=== PATIENT | female | born 1955 | race Caucasian/White ===

== ENCOUNTER 2017-10-20 00:25 | Emergency (ER) | payer OTHER ==
[2017-10-20] MEDS ORDERED: ASPIRIN 81 MG TABLET, CHEWABLE PO ONE (02:09)
[2017-10-20 02:33] LABS: ABSOLUTE BASOPHILS # (AUTO) 0.1 10^3/uL (0.0-0.2); ABSOLUTE EOSINOPHILS # (AUTO) 0.1 10^3/uL (0.0-0.6); ABSOLUTE LYMPHOCYTES (AUTO) 2.8 10^3/uL (0.5-4.7); ABSOLUTE MONOCYTES (AUTO) 0.8 10^3/uL (0.1-1.4); ABSOLUTE NEUT (AUTO) 5.4 10^3/uL (1.7-8.2); BASOPHILS % (AUTO) 0.6 % (0-2); EOSINOPHILS % (AUTO) 1.2 % (0-6); HEMATOCRIT 40.5 % (36.0-47.0); HEMOGLOBIN 13.9 g/dL (12.0-15.5); LYMPHOCYTES % (AUTO) 30.5 % (13-45); MEAN CORPUSCULAR HEMOGLOBIN 30.8 pg (27.0-33.4); MEAN CORPUSCULAR HGB CONC 34.2 g/dL (32.0-36.0); MEAN CORPUSCULAR VOLUME 90 fl (80-97); MONOCYTES % (AUTO) 8.7 % (3-13); PLATELET COUNT 207 10^3/uL (150-450); RED BLOOD COUNT 4.51 10^6/uL (3.72-5.28); RED CELL DISTRIBUTION WIDTH 12.7 % (11.5-14.0); TOTAL CELLS COUNTED % (AUTO) 100 %; WHITE BLOOD COUNT 9.1 10^3/uL (4.0-10.5)
[2017-10-20 02:45] LABS: ALANINE AMINOTRANSFERASE 31 U/L (9-52); ALBUMIN 4.1 g/dL (3.5-5.0); ALKALINE PHOSPHATASE 51 U/L (38-126); ANION GAP 7 (5-19); ASPARTATE AMINO TRANSFERASE 21 U/L (14-36); BILIRUBIN,DIRECT 0.1 mg/dL (0.0-0.4); BILIRUBIN,TOTAL 0.2 mg/dL (0.2-1.3); BLOOD UREA NITROGEN 21 mg/dL (7-20); CARBON DIOXIDE 30 mmol/L (22-30); CHLORIDE 105 mmol/L (98-107); CREATINE KINASE 44 U/L (30-135); GLUCOSE 85 mg/dL (75-110); LIPASE 279.4 U/L (23-300); POTASSIUM 4.3 mmol/L (3.6-5.0); SODIUM 142.2 mmol/L (137-145); TOTAL PROTEIN 6.4 g/dL (6.3-8.2)
--- NOTE | 2017-10-20 02:50 | RADIOLOGY REPORT (SQ) ---
EXAM DESCRIPTION: CHEST SINGLE VIEW CLINICAL HISTORY: 62 years Female, palpitations COMPARISON: None. NUMBER OF VIEWS/TECHNIQUE: 1/AP LIMITATIONS: None. FINDINGS: Increased lung volume, clear parenchyma, normal cardiac silhouette, and intact bony thorax. IMPRESSION: No acute cardiopulmonary findings.
[2017-10-20 02:53] LABS: D-DIMER < 0.27 ug/mL (0.00-0.50); INTERNATIONAL RATION (INR) 0.83
[2017-10-20 02:57] LABS: CREATINE KINASE MB 0.76 ng/mL (<4.55)
[2017-10-20 03:06] LABS: TROPONIN I < 0.012 ng/mL
[2017-10-20 03:31] LABS: APPEARANCE,URINE CLEAR; BILIRUBIN,URINE NEGATIVE (NEGATIVE); COLOR,URINE STRAW; GLUCOSE, URINE NEGATIVE (NEGATIVE); KETONES,URINE NEGATIVE (NEGATIVE); LEUKOCYTE ESTERASE,URINE NEGATIVE (NEGATIVE); NITRITE,URINE NEGATIVE (NEGATIVE); PROTEIN,URINE NEGATIVE (NEGATIVE); URINE SPECIFIC GRAVITY 1.005; UROBILINOGEN,URINE NEGATIVE mg/dL (<2.0)
--- NOTE | 2017-10-20 04:49 | ER Document Report ---
ED General - General Chief Complaint: Irregular hearbeat Stated Complaint: POSSIBLE IRRIGULAR HEART BEAT Time Seen by Provider: 10/20/17 02:09 TRAVEL OUTSIDE OF THE [place] IN LAST 30 DAYS: No - HPI Patient complains to provider of: Palpitations Notes: Patient coming in for evaluation of palpitations ongoing for the last 2 weeks. Patient states also having mild shortness of breath. Denies any chest pain. Patient states has a history of ablation and also prior to ablation had a cardiac arrest. This was performed greater than 5 years prior to her visit today. Patient states increased stress over the last few weeks to as well. Patient denies any recent travel however states she is currently on estrogen therapy. Patient states she has not followed up with a PCP does not take any other medications. Patient resting comfortably upon my evaluation the polyp to the monitor. Denies chest pain abdominal pain nausea vomiting fevers or chills Past Medical History - Social History Smoking Status: Never Smoker Chew tobacco use (# tins/day): No Frequency of alcohol use: None Drug Abuse: None Family History: Reviewed & Not Pertinent Patient has suicidal ideation: No Patient has homicidal ideation: No Renal/ Medical History: Denies: Hx Peritoneal Dialysis Past Surgical History: Reports: Hx Cardiac Surgery - ablasion, Hx Hysterectomy Review of Systems - Review of Systems Constitutional: No symptoms reported EENT: No symptoms reported Cardiovascular: Palpitations - Right Respiratory: No symptoms reported Gastrointestinal: No symptoms reported Genitourinary: No symptoms reported Female Genitourinary: No symptoms reported Musculoskeletal: No symptoms reported Skin: No symptoms reported Hematologic/Lymphatic: No symptoms reported Neurological/Psychological: No symptoms reported -: Yes All other systems reviewed and negative Physical Exam - Vital signs Vitals: Temp Pulse Resp BP Pulse Ox 98.2 F 69 16 119/75 98 10/20/17 01:37 10/20/17 01:37 10/20/17 01:37 10/20/17 01:37 10/20/17 01:37 Interpretation: Normal - General General appearance: Appears well, Alert - HEENT Head: Normocephalic, Atraumatic Eyes: Normal Pupils: PERRL - Respiratory Respiratory status: No respiratory distress Chest status: Nontender Breath sounds: Normal Chest palpation: Normal - Cardiovascular Rhythm: Regular Heart sounds: Normal auscultation Murmur: No - Abdominal Inspection: Normal Distension: No distension Bowel sounds: Normal Tenderness: Nontender Organomegaly: No organomegaly - Back Back: Normal, Nontender - Extremities General upper extremity: Normal inspection, Nontender, Normal color, Normal ROM , Normal temperature General lower extremity: Normal inspection, Nontender, Normal color, Normal ROM , Normal temperature, Normal weight bearing. No: Veto's sign - Neurological Neuro grossly intact: Yes Cognition: Normal Orientation: AAOx4 Talha Coma Scale Eye Opening: Spontaneous Floral Coma Scale Verbal: Oriented Talha Coma Scale Motor: Obeys Commands Talha Coma Scale Total: 15 Speech: Normal Motor strength normal: LUE, RUE, LLE, RLE Sensory: Normal - Psychological Associated symptoms: Normal affect, Normal mood - Skin Skin Temperature: Warm Skin Moisture: Dry Skin Color: Normal Course - Re-evaluation Re-evalutation: 10/20/17 06:14 Patient coming in for evaluation of palpitations. EKG only showed CBC. Patient 's trimming cutter machine also showed single PVCs. Negative d-dimer negative troponin. Electrolytes otherwise are within normal limits. Explained to the patient at this time feels she is a good candidate for outpatient evaluation and did give her local cardiology follow-up. Patient also was given the name of a local PCP. Patient agrees with discharge home patient was instructed to avoid stimulants. - Vital Signs Vital signs: Temp Pulse Resp BP Pulse Ox 98.2 F 69 19 111/63 99 10/20/17 01:37 10/20/17 01:37 10/20/17 05:07 10/20/17 05:07 10/20/17 05:07 - Laboratory Result Diagrams: 10/20/17 02:15 10/20/17 02:15 Laboratory results interpreted by me: 10/20/17 02:15 BUN 21 H Discharge - Discharge Clinical Impression: Palpitations, PVC (premature ventricular contraction) Condition: Good Disposition: HOME, SELF-CARE Instructions: Palpitations (Irregular or Rapid Heartrate) ([facility]), PVCs ([facility]) Additional Instructions: Follow-up with your primary care physician or the physician provided. I will highly recommend following up with the [facility] [employer] developer listed. Your laboratory studies night chest x-ray did not show any acute pathology for your palpitations. Your EKG and rhythm strips do show PVCs are premature ventricular contractions this is when the bottom part of your heart contracts when is not supposed to sometimes this will cause palpitations. I do not see an overt cause of your PVCs night such as electrolyte abnormalities or infection but I would recommend following up with the local [facility] [employer] developer for further evaluation. Please avoid stimulants avoid excessive stress and sure you are getting plenty of sleep return to the ER for any concerns. Referrals: ENRIKE SANCHEZ MD [COMMUNITY BASED STAFF] - Follow up as needed JORDAN BOUDREAUX MD [ACTIVE STAFF] - Follow up as needed
[2017-10-20 05:09] VITALS: BP 111/63
--- NOTE | 2017-10-20 08:04 | EKG REPORT ---
SEVERITY:- OTHERWISE NORMAL ECG - SINUS RHYTHM VENTRICULAR PREMATURE COMPLEX : Confirmed by: Rafy Bullock MD 20-Oct-2017 08:03:13
--- NOTE | 2017-10-20 08:04 | EKG REPORT ---
SEVERITY:- ABNORMAL ECG - SINUS RHYTHM VENTRICULAR PREMATURE COMPLEX PROBABLE LEFT ATRIAL ABNORMALITY BORDERLINE LEFT AXIS DEVIATION NONSPECIFIC T ABNORMALITIES, LATERAL LEADS : Confirmed by: Rafy Bullock MD 20-Oct-2017 08:03:38
== END 2017-10-20 05:17 | disposition home or self-care (01) ==
LOC: ER 00:25
DX: R00.2 Palpitations (principal); I49.3 Ventricular premature depolarization; R06.02 Shortness of breath; Z79.890 Hormone replacement therapy
CPT/HCPCS: 36415; 71045; 80053; 81001; 82550; 82553; 83690; 83735; 84484; 85025; 85379; 85610; 93005; 93010; 99285